=== PATIENT | male | born 1970 ===

== ENCOUNTER 2024-05-16 10:47 | Outpatient (REF) | payer OTHER, SELFPAY ==
--- NOTE | 2024-05-16 10:55 | SKI_PTH ---
PATIENT: Edwin Solomon LOC: [facility] U#:[id number] AGE/SX: 54/M ROOM: RE05/16/[address]: Pieter Cai MD : 1970 BED: DIS: 05/16/2024 SPEC #: [id number] RECD: 05/16/24 12:53 STATUS: RICARDO REQ #: [id number] CITLALI: 05/16/24 10:[address]: Pieter Cai DEPT: Surgical Specimen RECD BY: Soraida Simon ENTERED: 05/16/24 12:54 SP TYPE: JENNIFER WARD DR: Radha Dubon Tissues: 1 - SKIN BIOPSY(SHAVE/PUNCH) Procedures: SKIN LEVEL 4 Comments: [id number]
== END 2024-05-16 10:48 | disposition home or self-care (01) ==
LOC: LBN 10:47
PROVIDERS: PCP Internal Medicine; Visit Provider Surgery
DX: L98.9 Disorder of the skin and subcutaneous tissue, unspecified (principal); L81.4 Other melanin hyperpigmentation
CPT/HCPCS: 88305